=== PATIENT | female | born 1935 | race Caucasian/White ===

== ENCOUNTER 2021-06-12 02:15 | Emergency (ER) | payer OTHER ==
[2021-06-12] MEDS ORDERED: CEFAZOLIN SODIUM 1 GM/VIAL ONE (03:50)
[2021-06-12] MEDS ORDERED: FENTANYL CITR 100 MCG/2 ML ONE ×3 (03:50→06:29)
[2021-06-12] MEDS ORDERED: NA CHLORIDE 0.9% 1,000 ML ONE (03:51)
[2021-06-12] MEDS ORDERED: TETANUS & DIPHTHERIA TOX,ADULT 0.5 ML VIAL ONE (03:51)
[2021-06-12] MEDS ORDERED: NA CHLORIDE 0.9% 500 ML ONE (03:51)
[2021-06-12] MEDS ORDERED: ONDANSETRON 4 MG/2 ML VIAL ONE (03:51)
[2021-06-12 05:25] LABS: ALT/SGPT 24 U/L (12-78); AST/SGOT 17 U/L (15-37); Albumin 3.3 g/dL (3.4-5.0); Alkaline Phosphatase 72 U/L (45-117); BUN Blood Urea Nitrogen 28 mg/dL (7-18); Bicarbonate 23 mmol/L (21-32); Bilirubin Direct < 0.1 mg/dL (0-0.2); Bilirubin Total 0.3 mg/dL (0.2-1.0); Glucose Level 173 mg/dL (74-106); Magnesium 2.4 mg/dL (1.8-2.4); NT PRO-BNP 210 pg/mL (<450); Potassium 4.3 mmol/L (3.5-5.1); Sodium Level 140 mmol/L (136-145); Troponin (Emerg Dept Use Only) < 0.02 ng/mL (0.0-0.045)
[2021-06-12 05:26] LABS: Protime INR 1.02
[2021-06-12 05:27] LABS: Absolute Lymphocytes (CBC) 2.1 K/uL (0.7-4.9); Basophils % 0.9 % (0-1.3); Hematocrit 39.2 % (36.0-45.0); Lymphocytes % 12.5 % (15.3-44.8); MPV 10.4 fL (7.6-11.3); RBC Red Blood Cell Count 4.14 M/uL (3.86-4.86)
[2021-06-12 05:51] LABS: Urine Appearance CLOUDY (Clear); Urine Blood NEGATIVE (Negative); Urine Color DK YELLOW (Yellow); Urine Glucose NEGATIVE (Negative); Urine Protein TRACE (Negative); Urine Specific Gravity >=1.030 (1.005-1.030); Urine Urobilinogen 0.2 mg/dL (0.2-1.0)
[2021-06-12 05:52] LABS: Urine Microscopic Reflex ORDER UMIC
--- NOTE | 2021-06-12 06:35 | ER ---
Nurse's Notes [facility] Name: Antonia Currie Age: 86 yrs Sex: Female : 1935 Arrival Date: 06/12/2021 Time: 02:33 Bed 26 Private MD: Diagnosis: Fracture of shaft of femur-comminuted , periprosthetic;Laceration without foreign body, left lower leg;Obesity, unspecified;Unspecified injury of head, initial encounter-left frontl hematoma;Displaced comminuted fracture of shaft of humerus, right arm, initial encounter for open fracture;Elevated white blood cell count Presentation: 06/12 02:20 Acuity: SOLA 1 cc4 02:20 Coronavirus screen: Vaccine status: Patient reports receiving the 2nd dose of the covid cc4 vaccine. Date October 15, 2020. Ebola Screen: Patient negative for fever greater than or equal to 101.5 degrees Fahrenheit, and additional compatible Ebola Virus Disease symptoms No symptoms or risks identified at this time. Initial Sepsis Screen: Does the patient meet any 2 criteria? No. Patient's initial sepsis screen is negative. Risk Assessment: Do you want to hurt yourself or someone else? Patient reports no desire to harm self or others. Onset of symptoms was June 12, 2021 at 01:30. 02:20 Chief complaint: EMS states: "She reports feeding her dog \\T\\ loosing her balance with cc4 inability to catch herself due to right shoulder pain and decreased ROM right arm falling to floor striking left knee \\T\\ right arm"; found lying prone on abdomen with bleeding noted left knee; bruising with scant edema noted left forehead/left brow \\T\\ upper left eyelid; kerlix dressing intact to left knee with moderate bleeding noted; EMS reports approx. 1 cm laceration of left knee; edema noted distal left thigh; edema noted right upper arm; c/o right upper arm pain 10/10; c/o left knee pain 10/10; denies LOC; no backboard or cervical collar intact; no IV access. 02:20 Method Of Arrival: EMS: [facility] cc4 Triage Assessment: 02:20 General: Appears uncomfortable, Behavior is calm, cooperative, Reports falling while cc4 tending to dog; reports loosing balance with inability to catch self with RUE due to prior shoulder pain and decreased ROM \\T\\ reports has been receiving physical therapy on right shoulder; inability to lift RUE; moving right fingers slowly; edema noted right upper arm with c/o pain 10/10 on pain scale; denies LOC; reports falling onto left knee with c/o pain 10/10 of left knee; kerlix dressing intact to left knee with moderate bleeding noted; with edema noted of left femur area; left pedal pulse 2+; right radial pulse 3+; contusion with small amount edema noted left forehead/left brow; awake/alert; AA\\T\\Ox4; following commands; arrived on stretcher with no backboard or cervical collar intact; skin cool/dry; BP 160/65; P 85; R 20; T 97.9; O2 sat 95% RA; trauma alert activated.. Pain: Complains of pain in left knee and right arm Pain currently is 10 out of 10 on a pain scale. at worst was 10 out of 10 on a pain scale. Quality of pain is described as aching, throbbing, Pain began suddenly, with fall approximately 30 POCKET CLOSER. Is continuous, Alleviated by nothing. Aggravated by repositioning. EENT: No deficits noted. Eyes clear; PEARLA; pupils 2mm OU.. Sclera/Cornea clear. Lid(s) Bruising left upper eye lid; opens \\T\\ closes eyelids with no difficulty.. Nares are clear No drainage noted of nostrils.. Oral mucosa is dry. Good dentition noted. No injury noted to mouth.. Neuro: No deficits noted. Level of Consciousness is awake, alert, obeys commands, Oriented to person, place, time, situation. Cardiovascular: No deficits noted. Heart tones S1 S2 Capillary refill < 3 seconds Pulses are all present. Rhythm is sinus rhythm. Respiratory: No deficits noted. Airway is patent Breath sounds are clear bilaterally. No abnormalities noted. GI: No deficits noted. Abdomen is obese, Bowel sounds present X 4 quads. Abd is soft and non tender X 4 quads. : No signs and/or symptoms were reported regarding the genitourinary system. Derm: Kerlix dressing intact left knee with moderate bleeding noted; bruising small amount edema noted left forehead/left brow/left upper eyelid. Musculoskeletal: Capillary refill < 3 seconds, Range of motion: limited in all extremities, right arm \\T\\ left leg. Injury Description: Laceration sustained to left leg is jagged, 0.5 to 2.5 cm long, was sustained 30-60 minutes ago. moderate bleeding noted at this time. Trauma Activation: Physician: ED Physician; Name: Mauri Ponce; Notified At: 02:20; Arrived At: Physician: General Surgeon; Name: ; Notified At: 00:00; Arrived At: Physician: Radiology; Name: ; Notified At: 03:10; Arrived At: Physician: Respiratory; Name: ; Notified At: 00:00; Arrived At: Physician: Lab; Name: ; Notified At: 02:20; Arrived At: Historical: - Allergies: 02:20 No Known Allergies; cc4 - Code Status:: Full code. - Immunization history: Last tetanus immunization: unknown. - Family history:: not pertinent. Screenin:45 Abuse screen: Denies threats or abuse. Denies injuries from another. Nutritional dc2 screening: No deficits noted. Tuberculosis screening: No symptoms or risk factors identified. Never had TB. Fall Risk Fall in past 12 months (25 points). Secondary diagnosis (15 points) No IV (0 pts). Ambulatory Aid- Crutches/Cane/Walker (15 pts). Gait- Impaired (20 pts.). Mental Status- Oriented to own ability (0 pts). Primary Survey: 02:20 A: The patient is alert. Airway: patent, Kerlix dressing intact left knee with moderate cc4 bleeding noted.. Breathing/Chest: Respiratory pattern: regular, Respiratory effort: spontaneous, unlabored, Breath sounds: clear, bilaterally. Chest inspection: symmetrical rise and fall of the chest. Circulation: Cardiac rhythm: sinus rhythm Heart tones present. Pulses: palpable right radial artery, right posterior tibial artery, right dorsalis pedis artery, left radial artery, left posterior tibial artery and left dorsalis pedis artery. Skin color: pink, Skin temperature: dry, cool. Disability Alert. Exposure/Environment: There is evidence of uncontrolled external hemorrhage. Provider notified immediately. Methods to control bleeding applied. Obvious injury(ies) are noted at this time: Right upper arm edema with limited ROM; reported laceration left knee with kerlix dsg intact with moderate bleeding noted; decreased ROM left leg with edema noted lower left thigh near knee; contusion/bruising noted left forehead/brow \\T\\ left upper eyelid; denies LOC; AA\\T\\Ox4; following commands. 02:20 NO uncontrolled hemorrhage observed. cc4 Assessment: 02:20 Reassessment: See triage note and assessment. cc4 02:20 Reassessment: Trauma activation; # 18 g angiocath saline lock inserted left AC x 1 cc4 attempt with no difficulty; blood drawn \\T\\ sent to lab; ice packs; CM applied \\T\\ monitoring NSR with no ectopy; VSS; see triage note;. 02:40 Reassessment: No changes from previously documented assessment. Dr. Ponce in \\T\\ cc4 bedside assessing patient with kerlix dressing removed left knee; approx. 1 cm jagged laceration noted left knee with active bleeding left knee cleaned with betadine \\T\\ redressed with sterile 4x4's, ABD pad (folded) with 6" camilla wrap; ice packs applied to right upper arm area of swelling \\T\\ reported pain, left distal thigh/left knee and left forehead; no changes in condition; VSS; new orders received. 03:15 Reassessment: No additional bleeding noted left knee; VSS; medicated as ordered for cc4 pain; IV NS 500ml hung \\T\\ infusing \\T\\ open rate with no s/sx's of infiltration; EKG done; NSR with no ectopy con't noted of CM. 03:20 Reassessment: interventional technologist in with portable xrays being done. cc4 03:32 Reassessment: To CT via stretcher; reports relief of pain. cc4 07:30 Reassessment:. cc4 Vital Signs: 02:20 BP 160 / 65; Pulse 85; Resp 20; Temp 97.9(O); Pulse Ox 95% on R/A; cc4 02:45 BP 160 / 65; Pulse 85; Resp 22; Pulse Ox 99% on R/A; Pain 10/10; dc2 03:01 BP 136 / 60; Pulse 79; Resp 18; Pulse Ox 95% on R/A; cc4 03:32 BP 142 / 55; Pulse 83; Resp 20; Pulse Ox 95% on R/A; cc4 04:53 BP 147 / 47; Pulse 89; Resp 18; Pulse Ox 99% on R/A; cc4 05:00 BP 149 / 46; Pulse 90; Resp 18; Temp 97.8; Pulse Ox 95% on R/A; cc4 05:39 BP 129 / 56; Pulse 93; Resp 20; Pulse Ox 95% ; cc4 [place] Coma Score: 03:04 Eye Response: spontaneous(4). Verbal Response: oriented(5). Motor Response: obeys kareem commands(6). Total: 15. Trauma Score (Adult): 02:20 Eye Response: spontaneous(1); Verbal Response: oriented(1); Motor Response: obeys cc4 commands(2); Systolic BP: > 89 mm Hg(4); Respiratory Rate: 10 to 29 per min(4); [place] Score: 15; Trauma Score: 12 ED Course: 02:33 Patient arrived in ED. wm 02:40 Mauri Ponce MD is Attending Physician. kareem 03:10 Jeimy Rg RN is Primary Nurse. cc4 03:10 COVID swab sent to lab. dc2 03:50 Espinal cath inserted, using sterile technique, 16 Fr., by wi, balloon inflated, to dc2 gravity drainage, urine specimen collected. 03:51 initiated a transfer with Bashir from [facility]. mw2 03:52 Patient moved to [place] via stretcher. dc2 03:[address] Ponce with the ER doctor from [facility]. mw2 04:04 administrative approval given by Bashir Tracey/ patient has been accepted to [address] to the ER/ Dr. Wolf accepted the patient in transfer/ report to be called to [phone]. 04:23 Triage completed. cc4 05:30 Immobilizer applied left leg and splint applied right arm with sling per DR. Ponce \\T\\ cc4 Emiliano< RN; see order for pain med given. 07:11 Urine Culture Sent. cc4 07:31 Arm band placed on. cc4 Administered Medications: 03:15 Drug: Zofran (Ondansetron) 4 mg Route: IVP; Site: left antecubital; cc4 03:32 Follow up: Response: No adverse reaction cc4 03:15 Drug: NS 0.9% 500 ml Route: IV; Rate: bolus; Infused Over: 1 hrs; Site: left dc2 antecubital; Delivery: Primary tubing; 03:32 Follow up: IV Status: Completed infusion; IV Intake: 500ml cc4 03:17 Drug: fentaNYL (PF) 50 mcg Route: IVP; Site: left antecubital; cc4 03:32 Follow up: Response: No adverse reaction; Pain is decreased cc4 03:20 Drug: Ancef (cefazolin) 1 grams Route: IVPB; Site: left antecubital; cc4 03:32 Follow up: Response: No adverse reaction cc4 03:20 Drug: Tetanus-Diphtheria Toxoid Adult 0.5 ml {Automobile Wrecker: Jack Erwin. Exp: cc4 11/15/2022. Lot #: [id number]. } Route: IM; Site: left deltoid; 05:00 Follow up: Response: No adverse reaction cc4 04:53 Drug: NS 0.9% 1000 ml Route: IV; Rate: 125 ml/hr; Site: left antecubital; cc4 06:25 Follow up: IV Status: Infusion continued; IV Intake: 200ml cc4 05:22 Drug: fentaNYL (PF) 50 mcg Route: IVP; Site: left antecubital; em 06:13 Drug: fentaNYL (PF) 25 mcg Route: IVP; Site: left antecubital; cc4 Intake: 03:32 IV: 500ml; Total: 500ml. cc4 06:25 IV: 200ml; Total: 700ml. cc4 06:25 PO: 0ml; IV: 700ml; Total: 1400ml. cc4 Output: 06:25 Urine: 200ml (Espinal); Total: 200ml. cc4 Outcome: 04:10 ER care complete, transfer ordered by MD. serna 06:25 Transferred by ground EMS to [facility], Transfer form completed. X-rays sent cc4 w/ patient. 06:25 Condition: stable 06:25 Instructed on the need for transfer. 07:04 Patient left the ED. em Signatures: Mauri Ponce MD MD cha Munoz, Edgar RN RN em Scotty Daniel mw2 Tati Blakely Christie, RN RN cc4 Brianne, JAVED Dorantes RN dc2 Corrections: (The following items were deleted from the chart) 04:04 03:53 Ancef (cefazolin) 1 grams IVPB in left antecubital dc2 cc4 04:47 04:24 General: Appears cc4 cc4 04:50 03:01 BP 136 / 60; cc4 cc4 04:51 03:32 BP 136 / 60; Pulse 79bpm; Resp 18bpm; Pulse Ox 95% RA; cc4 cc4 06:59 02:20 Chief complaint: EMS states: "She reports feeding her dog loosing her balance and cc4 reported falling"; found lying supine with c/o right upper arm \\T\\ left knee pain. cc4 06:59 02:20 Method Of Arrival: EMS: [facility] cc4 cc4 07:08 06:00 BP 133 / 76; Pulse 92bpm; Resp 20bpm; Pulse Ox 100%; Temp 97.8F; cc4 cc4
--- NOTE | 2021-06-12 06:35 | EDPHYS ---
Physician Documentation [facility] Name: Antonia Currie Age: 86 yrs Sex: Female : 1935 Arrival Date: 06/12/2021 Time: 02:33 Bed 26 Private MD: ED Physician Mauri Ponce HPI: 06/12 02:56 This 86 yrs old Female presents to ER via Unassigned with complaints of Fall kareem Injury. 02:56 Details of fall: The patient fell from an upright position, while standing, while kareem walking. Onset: The symptoms/episode began/occurred just prior to arrival. Associated injuries: The patient sustained injury to the head. 03:00 Severity of symptoms: At their worst the symptoms were moderate, in the emergency kareem department the symptoms are unchanged. The patient has not experienced similar symptoms in the past. Historical: - Allergies: 02:20 No Known Allergies; cc4 - Code Status:: Full code. - Immunization history: Last tetanus immunization: unknown. - Family history:: not pertinent. ROS: 03:01 Constitutional: Negative for fever, chills, and weight loss, Eyes: Negative for injury, kareem pain, redness, and discharge, ENT: Negative for injury, pain, and discharge, Neck: Negative for injury, pain, and swelling, Cardiovascular: Negative for chest pain, palpitations, and edema, Respiratory: Negative for shortness of breath, cough, wheezing, and pleuritic chest pain, Abdomen/GI: Negative for abdominal pain, nausea, vomiting, diarrhea, and constipation, Back: Negative for injury and pain, : Negative for injury, bleeding, discharge, and swelling, Neuro: Negative for headache, weakness, numbness, tingling, and seizure, Psych: Negative for depression, anxiety, suicide ideation, homicidal ideation, and hallucinations, Allergy/Immunology: Negative for hives, rash, and allergies, Endocrine: Negative for neck swelling, polydipsia, polyuria, polyphagia, and marked weight changes, Hematologic/Lymphatic: Negative for swollen nodes, abnormal bleeding, and unusual bruising. 03:01 MS/extremity: Positive for decreased range of motion, pain, swelling, tenderness, of the right arm and left leg. 03:01 Neuro: Positive for headache. Exam: 03:01 Constitutional: This is a well developed, well nourished patient who is awake, alert, kareem and in no acute distress. Eyes: Pupils equal round and reactive to light, extra-ocular motions intact. Lids and lashes normal. Conjunctiva and sclera are non-icteric and not injected. Cornea within normal limits. Periorbital areas with no swelling, redness, or edema. ENT: Nares patent. No nasal discharge, no septal abnormalities noted. Tympanic membranes are normal and external auditory canals are clear. Oropharynx with no redness, swelling, or masses, exudates, or evidence of obstruction, uvula midline. Mucous membranes moist. Neck: Trachea midline, no thyromegaly or masses palpated, and no cervical lymphadenopathy. Supple, full range of motion without nuchal rigidity, or vertebral point tenderness. No Meningismus. Chest/axilla: Normal chest wall appearance and motion. Nontender with no deformity. No lesions are appreciated. Cardiovascular: Regular rate and rhythm with a normal S1 and S2. No gallops, murmurs, or rubs. Normal PMI, no JVD. No pulse deficits. Respiratory: Lungs have equal breath sounds bilaterally, clear to auscultation and percussion. No rales, rhonchi or wheezes noted. No increased work of breathing, no retractions or nasal flaring. Abdomen/GI: Soft, non-tender, with normal bowel sounds. No distension or tympany. No guarding or rebound. No evidence of tenderness throughout. Back: No spinal tenderness. No costovertebral tenderness. Full range of motion. Female : Normal external genitalia. Skin: Warm, dry with normal turgor. Normal color with no rashes, no lesions, and no evidence of cellulitis. Psych: Awake, alert, with orientation to person, place and time. Behavior, mood, and affect are within normal limits. 03:01 Head/face: Noted is contusion, hematoma, that is moderate, of the forehead and left scientologist. 03:01 Musculoskeletal/extremity: ROM: intact in all extremities, Circulation is intact in all extremities. Sensation intact. Compartment Syndrome exam of affected extremity: is normal. the lateral aspect of left knee, medial aspect of left knee and left knee severe pain, Joints: All joints are normal except the left knee and right shoulder displays limited range of motion, pain at rest, painful range of motion, tenderness. Vital Signs: 02:20 BP 160 / 65; Pulse 85; Resp 20; Temp 97.9(O); Pulse Ox 95% on R/A; cc4 02:45 BP 160 / 65; Pulse 85; Resp 22; Pulse Ox 99% on R/A; Pain 10/10; dc2 03:01 BP 136 / 60; Pulse 79; Resp 18; Pulse Ox 95% on R/A; cc4 03:32 BP 142 / 55; Pulse 83; Resp 20; Pulse Ox 95% on R/A; cc4 04:53 BP 147 / 47; Pulse 89; Resp 18; Pulse Ox 99% on R/A; cc4 05:00 BP 149 / 46; Pulse 90; Resp 18; Temp 97.8; Pulse Ox 95% on R/A; cc4 05:39 BP 129 / 56; Pulse 93; Resp 20; Pulse Ox 95% ; cc4 [place] Coma Score: 03:04 Eye Response: spontaneous(4). Verbal Response: oriented(5). Motor Response: obeys kareem commands(6). Total: 15. Trauma Score (Adult): 02:20 Eye Response: spontaneous(1); Verbal Response: oriented(1); Motor Response: obeys cc4 commands(2); Systolic BP: > 89 mm Hg(4); Respiratory Rate: 10 to 29 per min(4); [place] Score: 15; Trauma Score: 12 MDM: 02:40 Patient medically screened. kareem 03:04 Differential diagnosis: Hematoma on head, face. Differential diagnosis: closed head kareem injury, contusion, fracture, multiple trauma, sprain, strain. Data reviewed: vital signs, nurses notes, lab test result(s), EKG, radiologic studies, CT scan. Data interpreted: warehouse shipping clerk: rate is 90 beats/min, rhythm is regular, Pulse oximetry: on room air is 96 %. Test interpretation: by ED physician or midlevel provider: ECG, plain radiologic studies. Counseling: I had a detailed discussion with the patient and/or guardian regarding: the historical points, exam findings, and any diagnostic results supporting the discharge/admit diagnosis, lab results, radiology results, the need to transfer to another facility, for higher level of care, [facility] does not immediately have the required specialist. 06/12 06:35 Order name: Basic Metabolic Panel EDMS 06/12 06:35 Order name: Liver (Hepatic) Function EDMS 06/12 06:35 Order name: Troponin (Emerg Dept Use Only) EDAR 06/12 06:35 Order name: NT PRO-BNP [facility]AR 06/12 02:55 Order name: XRAY Chest (1 view) [facility] 06/12 02:55 Order name: Pelvis XRAY [facility] 06/12 02:55 Order name: Knee Left 2 View XRAY [facility] 06/12 02:55 Order name: Shoulder Right (2 View) XRAY [facility] 06/12 02:56 Order name: Femur Left XRAY [facility] 06/12 03:00 Order name: CT Traumagram (Head C Spine CAP wo con) [facility] 06/12 06:35 Order name: Magnesium [facility]AR 06/12 06:35 Order name: Protime (+INR) [facility]AR 06/12 06:35 Order name: CBC with Automated Diff EDAR 06/12 06:35 Order name: SARS-COV-2 RT PCR EDAR 06/12 06:35 Order name: Urine Culture EDAR 06/12 06:35 Order name: Urinalysis EDAR 06/12 06:55 Order name: Urine Microscopic Only [facility]AR 06/12 02:55 Order name: EKG; Complete Time: 16:49 [facility] 06/12 02:55 Order name: Cardiac monitoring; Complete Time: 03:38 [facility] 06/12 02:55 Order name: EKG - Nurse/Tech; Complete Time: 04:05 [facility] 06/12 02:55 Order name: IV Saline Lock; Complete Time: 03:38 [facility] 06/12 02:55 Order name: Labs collected and sent; Complete Time: 03:38 [facility] 06/12 02:55 Order name: O2 Per Protocol; Complete Time: 03:38 [facility] 06/12 02:55 Order name: O2 Sat Monitoring; Complete Time: 03:38 [facility] 06/12 02:55 Order name: Espinal; Complete Time: 03:53 [facility] 06/12 02:55 Order name: Urine Dipstick-Ancillary (obtain specimen) [facility] 06/12 02:55 Order name: Wound Care; Complete Time: 03:38 [facility] 06/12 04:28 Order name: Splint: COAPTATION SPLINT, RIGHT; Complete Time: 05:25 [facility] Administered Medications: 03:15 Drug: Zofran (Ondansetron) 4 mg Route: IVP; Site: left antecubital; cc4 03:32 Follow up: Response: No adverse reaction cc4 03:15 Drug: NS 0.9% 500 ml Route: IV; Rate: bolus; Infused Over: 1 hrs; Site: left dc2 antecubital; Delivery: Primary tubing; 03:32 Follow up: IV Status: Completed infusion; IV Intake: 500ml cc4 03:17 Drug: fentaNYL (PF) 50 mcg Route: IVP; Site: left antecubital; cc4 03:32 Follow up: Response: No adverse reaction; Pain is decreased cc4 03:20 Drug: Ancef (cefazolin) 1 grams Route: IVPB; Site: left antecubital; cc4 03:32 Follow up: Response: No adverse reaction cc4 03:20 Drug: Tetanus-Diphtheria Toxoid Adult 0.5 ml {Neighborhood Coordinator: [employer]. Exp: cc4 11/15/2022. Lot #: [id number]. } Route: IM; Site: left deltoid; 05:00 Follow up: Response: No adverse reaction cc4 04:53 Drug: NS 0.9% 1000 ml Route: IV; Rate: 125 ml/hr; Site: left antecubital; cc4 06:25 Follow up: IV Status: Infusion continued; IV Intake: 200ml cc4 05:22 Drug: fentaNYL (PF) 50 mcg Route: IVP; Site: left antecubital; em 06:13 Drug: fentaNYL (PF) 25 mcg Route: IVP; Site: left antecubital; cc4 Disposition Summary: 06/12/21 04:10 Transfer Ordered Transfer Location: [facility] kareem Reason: Higher level of care kareem Condition: Fair kareem Problem: new kareem Symptoms: are unchanged kareem Accepting Physician: dr pruett(06/12/21 07:04) em Diagnosis - Fracture of shaft of femur - comminuted , periprosthetic kareem - Laceration without foreign body, left lower leg kareem - Obesity, unspecified kareem - Unspecified injury of head, initial encounter - left frontl hematoma kareem - Displaced comminuted fracture of shaft of humerus, right arm, initial encounter for kareem open fracture - Elevated white blood cell count kareem Forms: - Medication Reconciliation Form kareem - SBAR form kareem Signatures: Dispatcher [employer] Mauri Leyva MD MD cha Munoz, Edgar, RN RN Samina Dickson ds1 Jeimy Rg RN RN cc4 Jayna Decker RN RN dc2 Corrections: (The following items were deleted from the chart) 04: 04:10 dr flynn serna cha 04: 04:10 2-part displaced fracture of surgical neck of right humerus kareem [facility] 04: 04:26 dr flynn serna cha 07:04 04:29 dr flynn serna
[2021-06-12 06:55] LABS: Urine Bacteria <20 /HPF (<20); Urine RBC NONE SEEN /HPF (NONE SEEN)
[2021-06-12 06:56] LABS: Urine Bilirubin 1+ (Negative)
[2021-06-12 07:20] VITALS: TEMP 97.8
[2021-06-12 07:22] VITALS: BP 133/76; O2SAT 100
--- NOTE | 2021-06-12 09:50 | RAD REPORT ---
EXAM DESCRIPTION: RAD - Chest Single View - 06/12/2021 8:48 am CLINICAL HISTORY: TRAUMA COMPARISON: No comparisons FINDINGS: Lines: None. Lungs: No evidence of edema or pneumonia. Pleural: No significant pleural effusions or pneumothorax. Cardiac: The heart size is within normal limits. Bones: No acute fractures. Left shoulder arthroplasty. Other: IMPRESSION: No acute cardiopulmonary disease.
--- NOTE | 2021-06-12 09:51 | RAD REPORT ---
EXAM DESCRIPTION: RAD - Femur Left - 06/12/2021 8:49 am CLINICAL HISTORY: TRAUMA COMPARISON: No comparisons FINDINGS: Left distal femur fracture which is displaced, has foreshortening, and extends to the left knee arthroplasty. The fracture is comminuted. IMPRESSION: Comminuted left distal femur fracture with involvement of the knee arthroplasty.
--- NOTE | 2021-06-12 09:52 | RAD REPORT ---
EXAM DESCRIPTION: RAD - Knee Left 2 View - 06/12/2021 8:48 am CLINICAL HISTORY: TRAUMA COMPARISON: No comparisons FINDINGS: Comminuted left distal femoral metaphyseal fracture with overriding involvement of the lef t knee arthroplasty. No dislocation of the knee is identified. IMPRESSION: Comminuted, displaced left distal femur fracture with extension to the arthroplasty.
--- NOTE | 2021-06-12 09:53 | RAD REPORT ---
EXAM DESCRIPTION: RAD - Shoulder Right 2 View - 06/12/2021 8:49 am CLINICAL HISTORY: TRAUMA COMPARISON: Shoulder Right 2 View dated 03/20/2021 FINDINGS: Obliquely oriented right proximal to mid humeral diaphyseal fracture with a full shaft wid th of displacement and several cm of foreshortening. IMPRESSION: Displaced fracture involving the right proximal and mid humeral diaphysis.
--- NOTE | 2021-06-12 09:54 | RAD REPORT ---
EXAM DESCRIPTION: RAD - Pelvis - 06/12/2021 8:48 am CLINICAL HISTORY: TRAUMA COMPARISON: No comparisons FINDINGS: No acute fracture.Advanced hip degenerative changes, left greater than right. No dislocati on identified on this single frontal radiograph. IMPRESSION: No acute osseous abnormality involving the bony pelvis.
--- NOTE | 2021-06-12 16:07 | EKG ---
Test Date: 2021-06-12 Test Time: 03:51:22 [place]ris Specialist: LEONIDAS MEASUREMENT RESULTS: Intervals: Rate: 78 [place]: 140 QRSD: 96 QT: 380 QTc: 433 [place]: P: 61 [place]: 140 QRS: -6 T: 64 INTERPRETIVE STATEMENTS: Normal sinus rhythm Normal ECG Compared to ECG 01/02/1998 13:41:00 No significant changes Electronically Signed On 06-12-21 16:07:01 CDT by Bret Spann
--- NOTE | 2021-06-21 09:49 | RAD REPORT ---
Head C Spine Cap Wo Con CLINICAL HISTORY: 86 years Female Fall TECHNIQUE: Noncontrast CT head and cervical spine with coronal and sagittal reformats. Trauma CT chest, abdomen, pelvis protocol without intravenous [contrast. Coronal and sagittal reformats were performed. All CT scans at this facility use dose modulation, iterative reconstruction, and/or weight based dosing when appropriate to reduce radiation dose to as low as reasonably achievable. COMPARISON: None. FINDINGS: Head: Brain: Diffuse parenchymal volume loss. Chronic small vessel disease. No intracranial hemorrhage, midline shift, mass or mass effect. No obvious large acute territorial infarction. Ventricles: No hydrocephalus. Orbits: Status post bilateral cataract surgeries. Sinus: Visualized portions are clear. Mastoid: clear Osseous: Unremarkable. Soft tissues: Unremarkable. Cervical spine: Vertebra: No acute fracture. Degenerative change: Multilevel degenerative changes. No high grade spinal canal stenosis. Alignment: Straightening of the normal cervical lordosis without spondylolisthesis. Soft tissues: Left thyroid nodule measuring 2.4 x 1.8 cm. Lungs: Visualized lung apices are clear. Chest: Lungs: Minimal bibasilar dependent atelectasis. Calcified granuloma in the right lung base. Pleura: No pneumothorax. No pleural effusion. Mediastinum: No mediastinal mass or adenopathy. Hilar calcifications are present. No pericardial effusion. Vascular: Grossly unremarkable. Bones: Comminuted minimally displaced right proximal humeral shaft fracture. Multilevel degenerative changes. Left shoulder arthroplasty.. Soft tissues: Unremarkable Abdomen/Pelvis: Liver: Unremarkable. Gallbladder: Small gallstone without gallbladder wall thickening. Pancreas: Within normal limits. Spleen: Multiple calcified granulomas are present. Kidney: No stone or hydronephrosis. Bilateral renal cysts, the largest is on the right measuring 8.8 x 7.7 cm. Adrenal glands: Within normal limits. Vascular structures: Atherosclerosis of the aorta and its major branches. Bowel: Diverticulosis without inflammatory changes No bowel distention. Appendix: Not seen. Peritoneum/retroperitoneum: No free fluid or free air. Lymph Nodes: No lymphadenopathy. Reproductive: Status post hysterectomy. Urinary bladder: Espinal catheter within decompressed urinary bladder. Osseous structures: Multilevel degenerative changes of the spine. Severe degenerative changes of the left hip. Soft tissues: Unremarkable. IMPRESSION: Head: 1. No acute intracranial findings. Cervical spine: 1. No acute cervical spine pathology. 2. A 2.4 cm left thyroid nodule. Recommend thyroid US if clinically warranted given patient age. Reference: J Am [facility] Radiol. 2015 Sep;12(2): 143-50 Chest: 1. No acute intrathoracic findings. 2. Comminuted minimally displaced right proximal humeral shaft fracture. Abdomen and pelvis: 1. No acute intra-abdominal pathology. 2. Chronic findings as described above. Electronically signed by: Beto Stokes MD 06/12/2021 5:18 AM CDT Due to temporary technical issues with the PACS/Fluency reporting system, reports are being signed by the in house radiologist without review as a courtesy to ensure prompt reporting. The interpreting radiologist is fully responsible for the content of the report.
== END 2021-06-12 07:04 | disposition short-term general hospital (02) ==
LOC: ER 02:15
DX: S72.352A Displaced comminuted fracture of shaft of left femur, initial encounter for closed fracture (principal); M97.12XA Periprosthetic fracture around internal prosthetic left knee joint, initial encounter; S42.351B Displaced comminuted fracture of shaft of humerus, right arm, initial encounter for open fracture; S81.812A Laceration without foreign body, left lower leg, initial encounter; D72.829 Elevated white blood cell count, unspecified; E66.9 Obesity, unspecified; W19.XXXA Unspecified fall, initial encounter; Y93.01 Activity, walking, marching and hiking; Z23 Encounter for immunization; Z20.822 Contact with and (suspected) exposure to COVID-19
CPT/HCPCS: 96361; 93005; 87088; 85025; 87086; 80048; 36415; 83735; 85610; 80076; 84484; 83880; 70450; 71250; 72125; 71045; 72170; 73030; 73560; 73552; 90471; 90714; 51702; 96375; 96374; 99291; 99292; U0003; J3010 ×3; J7040; J7030; J2405; J0690; 81003; 81015